=== PATIENT | male | born 2000 | race Caucasian/White ===

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

== ENCOUNTER 2024-04-19 18:21 | Emergency (ER) | payer MEDICAID ==
[~2024-04-19] VITALS: Ht 177.8 cm; Wt 95.3 kg
[2024-04-19] MEDS ORDERED: Ondansetron Hydrochloride 4 MG/2 ML VIAL IV ONE (18:40)
[2024-04-19] MEDS ORDERED: SODIUM CHLORIDE 0.9% 1,000 ML IV ONE (18:40)
[2024-04-19] MEDS ORDERED: Ketorolac Tromethamine 15 MG/ML VIAL IV ONE (18:40)
[2024-04-19] MEDS ORDERED: Ondansetron4 MG PO (18:44)
[2024-04-19] MEDS ORDERED: PEPCID20 MG PO (18:44)
[2024-04-19] MEDS ORDERED: IOHEXOL 300 MG/ML 100 ML VIAL IV ONE (18:45)
[2024-04-19 18:59] LABS: BASO % 0.4 % (0.0-1.0); EOS % 0.2 % (1.0-4.0); HEMATOCRIT 42.4 % (42.0-52.0); LYMPH % 20.2 % (27.0-41.0); MEAN CELL VOLUME 85.8 fl (80.0-94.0); MEAN CORPUSCULAR HGB 29.6 pg (27.0-31.0); MEAN CORPUSCULAR HGB CONC 34.4 g/dl (33.0-37.0); MEAN PLATELET VOLUME 10.5 fl (9.6-12.3); MONO # 0.5 10*3/uL (0.1-1.0); MONO % 5.4 % (3.0-9.0); NEUT # 7.2 10*3/uL (2.3-7.9); NEUT % 73.6 % (47.0-73.0); PLATELET COUNT AUTOMATED 215 10*3/uL (130-400); RED BLOOD COUNT 4.94 10*6/uL (4.50-5.90); RED CELL DISTRI WIDTH 11.9 % (0-14.5); WHITE BLOOD COUNT 9.8 10*3/uL (4.8-10.8)
[2024-04-19 19:10] LABS: ALKALINE PHOSPHATASE 74 U/L (46-116); BUN 7 mg/dl (9-23); CHLORIDE 103 mmol/L (98-107); LIPASE 38 U/L (12-53); POTASSIUM 3.5 mmol/L (3.4-5.1); SGPT/ALT 14 U/L (5-49); TOTAL PROTEIN 7.4 gm/dL (6.0-8.0)
== END 2024-04-19 22:20 | disposition home or self-care (01) ==
LOC: ED 18:21
PROVIDERS: Emergency Medicine
DX: R10.84 Generalized abdominal pain (principal); R11.0 Nausea; R19.7 Diarrhea, unspecified